=== PATIENT | male | born 1975 | race Caucasian/White ===

== ENCOUNTER 2022-11-08 20:46 | Emergency (ER) | payer OTHER, SELFPAY ==
[2022-11-08 20:54] VITALS: BP 109/77; PULSE 113; RESP 18; TEMP 36.4; O2SAT 97; BMI 21.4
--- NOTE | 2022-11-08 20:59 | W.ED.SOB ---
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 Notes onset of symptoms approximately 4 weeks ago without known specific provoking event. Since that time has had progressively worsening exertional dyspnea, dyspnea at rest, and orthopnea. Does note cough which is nonproductive. He notes some feeling of abdominal fullness. Overall course is worsened. Intensity is moderate to severe. 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 Onset (ago): week(s) Timing: progressively worsening Severity: severe Exacerbating factors: lying flat, exertion and coughing Known history of: COPD Associated symptoms: Reports orthopnea, palpitations and other Review of Systems General: Reports: 10 or more systems reviewed and unremarkable except in HPI and below Card: Reports: palpitations and orthopnea PFS ED PFSH: Medical History (Updated 11/21/22 @ 19:35 by Lukas Christensen MD) COPD (chronic obstructive pulmonary disease) Surgical History (Updated 11/21/22 @ 19:35 by Lukas Christensen MD) No significant past surgical history Physical Exam Const: COMMON NORMALS: alert GENERAL APPEARANCE: cooperative and well developed HENMT: COMMON NORMALS: normocephalic and atraumatic HEAD & SCALP: normocephalic and atraumatic Eye: COMMON NORMALS: conjunctivae normal CONJUNCTIVA: Yes conjunctivae normal SCLERA: sclerae normal Neck/C-Spine: COMMON NORMALS: supple GENERAL: Yes trachea midline Resp: COMMON NORMALS: normal respiratory effort EFFORT & INSPECTION: Yes able to speak in complete sentences AUSCULTATION: crackles Cardio: COMMON NORMALS: regular rhythm RATE: tachycardic RHYTHM: regular rhythm GI: COMMON NORMALS: Soft to palpation PALPATION: Yes Soft to palpation and No Tenderness to palpation present (GI) PERCUSSION: normal to percussion Extremity: GENERAL: Yes normal exam except as noted and Yes edema Neuro: COMMON NORMALS: moves all extremities SENSORIUM/ORIENTATION: Yes alert and No Orientation impaired Psych: COMMON NORMALS: mental status grossly normal and Normal thought process present THOUGHT PROCESS: Normal thought process present Course Vital Signs: Vital signs: Vital Signs Temperature 97.5 F L 07/04/23 20:54 Pulse Rate 117 H 11/08/22 23:38 Respiratory Rate 30 H 11/08/22 23:38 Blood Pressure 121/95 11/08/22 23:38 Pulse Oximetry 94 11/08/22 23:38 Oxygen Delivery Me thod Room Air 11/08/22 23:00 MDM - SOB/Dyspnea Medical Decision Making 46-year-old gentleman presenting with worsening respiratory symptoms. Exam as above. Patient is tachycardic and I suspect has evidence of heart failure as opposed to COPD exacerbation. EKG demonstrates sinus tachycardia, normal axis and intervals, nonspecific ST segment abnormalities, no STEMI. Labs with no leukocytosis, normal hemoglobin and platelet count. ABG demonstrates hypoxemia with respiratory end mildly elevated creatinine and potassium. Negative range 2-hour delta troponin. BNP is elevated. Viral panel negative. Chest x-ray with borderline cardiomegaly and mild interstitial edema. Overall presentation is more impressive than chest x-ray findings. D-dimer obtained as patient cannot be ruled out by PERC given tachycardia. D-dimer was elevated and therefore CT obtained which is negative for pulmonary embolism. Patient has effusions present and mild evidence of pneumonitis. Patient initially had fluids ordered however only received a small volume before I instructed RN to stop fluids after review chest x-ray with evidence of vascular congestion. He was also treated with RT treatment. Evidence of new onset heart failure and also possible pneumonia with history of underlying lung disease. He is tachycardic and I recommended inpatient evaluation and treatment. Patient adamantly refused admission. The patient is oriented to person, place, and time, has the capacity to make decisions regarding the medical care offered. The patient speaks coherently and exhibits no evidence of having an altered level of consciousness or alcohol or drug intoxication to a point that would impair judgment. They respond knowingly to questions about recommended treatment and alternate treatments including no further testing or treatment; participate in diagnostic and treatment decisions by means of rational thought processes; and understand the items of minimum basic medical treatment information with respect to that treatment (the nature and seriousness of the illness, the nature of the treatment, the probable degree and duration of any benefits and risks of any medical intervention that is being recommended, and the consequences of lack of treatment, and the nature, risks, and benefits of any reasonable alternatives). He is adamant about leaving and has capacity to make medical decisions. Discharge instructions were provided to the patient. The patient understands they are welcome to return to the hospital at any time to receive the recommended care or any other care at any time, regardless of their ability to pay for such care. I will treat the patient's pneumonia as well as initiate Lasix and potassium supplementation. I will refer for further outpatient follow-up. Medical Records I reviewed the patient's medical records. Lab Data I reviewed the patient's lab results. 11/08/22 21:19 11/08/22 21:19 Labs/Radiology: Radiology Impressions Chest X-Ray 11/08/22 21:04 IMPRESSION: 1. Interval increased heart size with current borderline to mild cardiomegaly. 2. Interval appearance of thickening of the right minor fissure and peribronchial thickening consistent with mild pulmonary interstitial edema. Chest CTA 11/08/22 21:49 IMPRESSION: 1. Jffg-du-kfevfepb bilateral pleural fluid collection, fvlml-bnbfaxq-ccgb-left. 2. Mild groundglass opacities and/or interstitial opacities consistent with mild allergic pneumonitis, infectious pneumonitis, atypical pulmonary edema and/or volume overload. 3. Borderline to mild cardiomegaly. 4. No pulmonary embolus. COMMENTS: Consistent with the [employer]'s Incidental Findings Committee white paper (J Am Dana Radiol 2018): Any incidental renal lesion less than 1 cm or classified as too small to characterize, or any incidental cystic renal lesion characterized as simple-appearing, is likely benign. No follow-up imaging is recommended for these lesions per consensus recommendations based on imaging criteria. Laboratory Results WBC 9.6 10^3/uL (4.0-10.0) 11/08/22 21:19 RBC 4.46 10^6/uL (4.1-5.3) 11/08/22 21:19 Hgb 13.4 g/dL (11.7-16.6) 11/08/22 21:19 Hct 42.5 % (42.0-52.0) 11/08/22 21:19 MCV 95.3 fl (80-94) H 11/08/22 21:19 MCH 30.0 pg (28.0-34.0) 11/08/22 21: MCHC 31.5 g/dL (30.0-36.0) 11/08/22 21:19 RDW 14.4 % (12.1-15.1) 11/08/22 21:19 Plt Count 196 10^3/cmm (130-400) 11/08/22 21:19 MPV 12.0 fL (7.4-10.4) H 11/08/22 21:19 Neut % (Auto) 74.0 % 11/08/22 21:19 Lymph % (Auto) 18.8 % 11/08/22 21:19 [place] % (Auto) 5.6 % 11/08/22 21:19 Eos % (Auto) 0.6 % 11/08/22 21:19 Baso % (Auto) 0.6 % 11/08/22 21:19 Neut # (Auto) 7.08 10^3/uL (1.8-7.7) 11/08/22 21:19 Lymph # (Auto) 1.8 10^3/uL (0.8-4.8) 11/08/22 21:19 [place] # (Auto) 0.5 10^3/uL (0.2-0.9) 11/08/22 21:19 Eos # (Auto) 0.1 10^3/uL (0.0-0.8) 11/08/22 21:19 Baso # (Auto) 0.1 10^3/uL (0.0-0.1) 11/08/22 21:19 Nucleated RBC % (auto) 0 % 11/08/22 21:19 Nucleated RBCs # 0.0 /100WBC 11/08/22 21:19 D-Dimer 1.13 ug/mIFEU (0-0.59) H 11/08/22 21:19 Specimen Type Arterial 11/08/22 21:30 Sample Site Brachial, right 11/08/22 21:30 ABG pH 7.47 (7.35-7.45) H 11/08/22 21:30 ABG pCO2 28.7 mmHg (35-45) L 11/08/22 21:30 ABG pO2 70.5 mmHg (80.0-100.0) L 11/08/22 21:30 ABG HCO3 21.0 mmol/L (22-26) L 11/08/22 21:30 ABG Base Excess -1.6 mmol/L (-2.0-2.0) 11/08/22 21:30 [place] Test N/a 11/08/22 21:30 Hematocrit 38.6 % (42-52) L 11/08/22 21:30 Hgb O2 Saturation 93.5 % (95-100) L 11/08/22 21:30 Carboxyhemoglobin 2.1 %THgb (0.4-20.1) 11/08/22 21:30 Methemoglobin 0.1 % (0.4-1.5) L 11/08/22 21:30 Total Hemoglobin 12.6 g/dL (14-18) L 11/08/22 21:30 O2 Delivery Device None 11/08/22 21:30 FiO2 21.0 % 11/08/22 21:30 Mold Design Engineer ID Alewe 11/08/22 21:30 Sodium 142 mmol/L (136-145) 11/08/22 21:19 Potassium 5.2 mmol/L (3.5-5.1) H 11/08/22 21:19 Chloride 105 mmol/L (98-107) 11/08/22 21:19 Carbon Dioxide 23 mmol/L (22-29) 11/08/22 21:19 Anion Gap 19.2 (5-19) H 11/08/22 21:19 BUN 15 mg/dL (6-20) 11/08/22 21:19 Creatinine 1.3 mg/dL (0.7-1.2) H 11/08/22 21:19 GFR Calculation 58.9 mL/min (90-130) L 11/08/22 21:19 Glucose 123 mg/dL (65-115) H 11/08/22 21:19 Calculated Osmolality 296 mOsm/kg (285-295) H 11/08/22 21:19 Lactic Acid 1.4 mmol/L (0.5-2.2) 11/08/22 21:19 Calcium 9.2 mg/dL (8.5-10.5) 11/08/22 21:19 Total Bilirubin 0.8 mg/dL (0.15-1.2) 11/08/22 21:19 AST 26 U/L (0-40) 11/08/22 21:19 ALT 34 U/L (0-41) 11/08/22 21:19 Alkaline Phosphatase 55 U/L (40-130) 11/08/22 21:19 Troponin T Baseline 18 ng/L (0-15) H 11/08/22 21:19 Troponin T 120 Minute 16.15 ng/L (0-15) H 11/08/22 23:05 Delta Troponin T -1.85 ABS# (0-10) L 11/08/22 23:05 NT-Pro-B Natriuret Pep 63779 pg/mL (0-125) H 11/08/22 21:19 Total Protein 7.0 g/dL (6.6-8.7) 11/08/22 21:19 Albumin 4.1 g/dL (3.5-5.2) 11/08/22 21:19 Globulin 2.9 g/dL (1.3-4.6) 11/08/22 21:19 Nasal Influ A H1 2008 PCR Not detected (NOT DETECT) 11/08/22 21:16 Adenovirus (PCR) Not detected (NOT DETECT) 11/08/22 21:16 C. pneumoniae DNA (PCR) Not detected (NOT DETECT) 11/08/22 21:16 Coronavirus 229E (PCR) Not detected (NOT DETECT) 11/08/22 21:16 Human Metapneumovir PCR Not detected (NOT DETECT) 11/08/22 21:16 Influenza A (H1) PCR Not detected (NOT DETECT) 11/08/22 21:16 Influenza A (H3) PCR Not detected (NOT DETECT) 11/08/22 21:16 Influenza Type A (PCR) Not detected (NOT DETECT) 11/08/22 21:16 Influenza Type B (PCR) Not detected (NOT DETECT) 11/08/22 21:16 M. pneumoniae (PCR) Not detected (NOT DETECT) 11/08/22 21:16 Parainfluenza 1 (PCR) Not detected (NOT DETECT) 11/08/22 21:16 Parainfluenza 2 (PCR) Not detected (NOT DETECT) 11/08/22 21:16 Parainfluenza 3 (PCR) Not detected (NOT DETECT) 11/08/22 21:16 Parainfluenza 4 (PCR) Not detected (NOT DETECT) 11/08/22 21:16 RSV Type A (PCR) Not detected (NOT DETECT) 11/08/22 21:16 RSV Type B (PCR) Not detected (NOT DETECT) 11/08/22 21:16 Entero/Rhino (PCR) Not detected (NOT DETECT) 11/08/22 21:16 SARS-CoV-2 (PCR) Not detected (NOT DETECT) 11/08/22 21:16 Discharge Plan Discharge Patient Disposition: Left Against Medical Advice Clinical Impression: Community acquired pneumonia, Congestive heart failure Condition: Stable Prescriptions: New albuterol sulfate 90 mcg/actuation HFA aerosol inhaler 2 inh inhalation Q4H PRN (Reason: shortness of breath or wheezing) Qty: 8.5 0RF Lasix 40 mg tablet 40 mg PO DAILY Qty: 30 0RF potassium chloride 10 mEq capsule, extended release 10 meq PO DAILY Qty: 14 0RF No Action amoxicillin-pot clavulanate 875-125 mg tablet 1 tab PO BID 7 Days Qty: 14 0RF Discharge Orders: Discharge ED (Routine); Ordered 11/08/22 Ordered By: Lukas Christensen Discharge Diet: Cardiac Discharge Activity: Resume usual activity Patient Instructions: Heart Failure (ED), Pneumonia (ED) Activity Restrictions/Additional Instructions: Thank you for visiting the emergency department. You were seen and evaluated for shortness of breath. The most likely cause of your symptoms is related to heart failure. There may be some superimposed atypical pneumonia. I strongly recommend admission. Failure to be admitted for further cardiac evaluation may lead to , permanent debility/disability, or worse. You may return to the emergency department at any reason for any time. I will message case management for follow-up and an outpatient echocardiogram. Please follow-up with a primary care provider. Stand Alone Forms: Against Medical Advice Coding Level of Care Code ED Membership Correspondent for Trina Tariq
--- NOTE | 2022-11-08 21:04 | XRR_ITS ---
PROCEDURE INFORMATION: Exam: XR Chest Exam date and time: 11/08/2022 8:11 PM Age: 46 years old Clinical indication: Shortness of breath; Additional info: SOB TECHNIQUE: Imaging protocol: Radiologic exam of the chest. Views: 1 view. COMPARISON: CR XR chest 2V* [id number] 01/25/2017 1:40 PM FINDINGS: Lungs: See Pleural spaces finding. Pleural spaces: Interval appearance of thickening of the right minor fissure and peribronchial thickening consistent with mild pulmonary interstitial edema. Heart/Mediastinum: Interval increased heart size with current borderline to mild cardiomegaly. Bones/joints: Unremarkable. XR/XR chest 1V portable [id number] IMPRESSION: 1. Interval increased heart size with current borderline to mild cardiomegaly. 2. Interval appearance of thickening of the right minor fissure and peribronchial thickening consistent with mild pulmonary interstitial edema.
--- NOTE | 2022-11-08 21:09 | ECG_ITS ---
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 Measurements Intervals [place] Rate: 113 P: 79 TX: 153 QRS: 68 QRSD: 97 T: 114 QT: 348 QTc: 479 Interpretive Statements SINUS TACHYCARDIA POSSIBLE LEFT ATRIAL ENLARGEMENT [-0.1mV P-WAVE IN V1/V2] NONSPECIFIC T-WAVE ABNORMALITY ABNORMAL RHYTHM ECG Compared to ECG 01/25/2017 12:41:58 T-wave abnormality now present Sinus rhythm no longer present Electronically Signed On 11-09-2022 4:16:10 CDT by Olga Pope M.D. [email or web address] [id number]
[2022-11-08] MEDS: ipratropium-albuterol 3 mL Neb INHALATION (21:28)
[2022-11-08 21:30] VITALS: PULSE 115; RESP 14; O2SAT 97
[2022-11-08 21:32] LABS: Basophils # 0.1 10^3/uL (0.0-0.1); Basophils % 0.6 %; Eosinophils # 0.1 10^3/uL (0.0-0.8); Eosinophils % 0.6 %; Hematocrit 42.5 % (42.0-52.0); Hemoglobin 13.4 g/dL (11.7-16.6); Lymphocytes # 1.8 10^3/uL (0.8-4.8); Lymphocytes % 18.8 %; Mean Corpuscular HGB Conc 31.5 g/dL (30.0-36.0); Mean Corpuscular Volume 95.3 fl (80-94); Monocytes # 0.5 10^3/uL (0.2-0.9); Monocytes % 5.6 %; Neutrophils # 7.08 10^3/uL (1.8-7.7); Nucleated Red Blood Cells % 0 %; Platelet Count 196 10^3/cmm (130-400); Red Blood Count 4.46 10^6/uL (4.1-5.3); Red Cell Distribution Width 14.4 % (12.1-15.1); White Blood Count 9.6 10^3/uL (4.0-10.0)
[2022-11-08 21:43] LABS: ABG PCO2 28.7 mmHg (35-45); ABG PH Result 7.47 (7.35-7.45); Arterial Blood Gas Hematocrit 38.6 % (42-52); Base Excess ABG -1.6 mmol/L (-2.0-2.0); Blood Gas Sample Site Brachial, right; Blood Gas Sample Type Arterial; Carboxyhemoglobin 2.1 %THgb (0.4-20.1); HGB O2 Sat 93.5 % (95-100); Methemoglobin 0.1 % (0.4-1.5); PO2 ABG 70.5 mmHg (80.0-100.0); Total Hemoglobin 12.6 g/dL (14-18)
[2022-11-08 21:45] LABS: D Dimer 1.13 ug/mIFEU (0-0.59)
[2022-11-08 21:47] LABS: Lactic Sepsis W/Reflex 1.4 mmol/L (0.5-2.2)
--- NOTE | 2022-11-08 21:49 | CTR_ITS ---
PROCEDURE INFORMATION: Exam: CTA Chest With Contrast Exam date and time: 11/08/2022 10:00 PM Age: 46 years old Clinical indication: Shortness of breath; Additional info: SOB, elevated ddimer, tachycardia TECHNIQUE: Imaging protocol: Computed tomographic angiography of the chest with contrast. Exam focused on the arteries. 3D rendering (Not supervised by radiologist): MIP and/or 3D reconstructed images were created by the technologist. Radiation optimization: All CT scans at this facility use at least one of these dose optimization techniques: automated exposure control; mA and/or kV adjustment per patient size (includes targeted exams where dose is matched to clinical indication); or iterative reconstruction. Contrast material: ONMNI 350; Contrast volume: 100 ml; Contrast route: INTRAVENOUS (IV); REPORTING DATA: Count of CT and Cardiac NM exams in prior 12 months: This patient has received 0 known CTs and 0 known cardiac nuclear medicine studies in the 12 months prior to the current study. COMPARISON: CR (CHEST, ) 11/08/2022 8:11 PM RADIATION DOSE METRICS: Total DLP (mGy-cm): 259.13 FINDINGS: Pulmonary arteries: No pulmonary embolus. Aorta: Unremarkable. No aortic aneurysm. No aortic dissection. Lungs: Mild groundglass opacities and/or interstitial opacities consistent with mild allergic pneumonitis, infectious pneumonitis, atypical pulmonary edema and/or volume overload. Pleural spaces: Lyva-tu-mpadlqzi bilateral pleural fluid collection, imnzg-ykjhciy-lqri-left. Heart: Borderline to mild cardiomegaly. Lymph nodes: Unremarkable. No enlarged lymph nodes. Kidneys and ureters: Left renal simple cyst measuring >1.0 cm. Bones/joints: Unremarkable. No acute fracture. Soft tissues: Unremarkable. Other findings: . CT/CT angio chest PE protcl [id number] IMPRESSION: 1. Ugkc-sm-ccjalkdw bilateral pleural fluid collection, kzhoh-ibxpior-cihu-left. 2. Mild groundglass opacities and/or interstitial opacities consistent with mild allergic pneumonitis, infectious pneumonitis, atypical pulmonary edema and/or volume overload. 3. Borderline to mild cardiomegaly. 4. No pulmonary embolus. COMMENTS: Consistent with the [employer]'s Incidental Findings Committee white paper (J Am Dana Radiol 2018): Any incidental renal lesion less than 1 cm or classified as too small to characterize, or any incidental cystic renal lesion characterized as simple-appearing, is likely benign. No follow-up imaging is recommended for these lesions per consensus recommendations based on imaging criteria.
[2022-11-08 21:51] LABS: Troponin(5th) Baseline 18 ng/L (0-15)
[2022-11-08] MEDS: iohexol 350 mg/mL 500 mL Btl (per mL) IV (22:00)
[2022-11-08 22:01] LABS: Alanine Aminotransferase 34 U/L (0-41); Albumin Level 4.1 g/dL (3.5-5.2); Alkaline Phosphatase 55 U/L (40-130); Anion Gap 19.2 (5-19); Aspartate Amino Transferase 26 U/L (0-40); Blood Urea Nitrogen 15 mg/dL (6-20); Calcium 9.2 mg/dL (8.5-10.5); Carbon Dioxide 23 mmol/L (22-29); Chloride 105 mmol/L (98-107); Globulin 2.9 g/dL (1.3-4.6); Glomerular Filtration Rate 58.9 mL/min (90-130); Glucose 123 mg/dL (65-115); NT Pro B Type Natriuretic Pept 10286 pg/mL (0-125); Osmolality Calculated 296 mOsm/kg (285-295); Potassium 5.2 mmol/L (3.5-5.1); Sodium 142 mmol/L (136-145); Total Bilirubin 0.8 mg/dL (0.15-1.2)
[2022-11-08 22:21] VITALS: BP 132/92; PULSE 112; RESP 22; O2SAT 97
[2022-11-08 23:00] VITALS: BP 120/83; PULSE 116; RESP 29; O2SAT 95
--- NOTE | 2022-11-08 23:08 | ECG_ITS ---
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 Measurements Intervals [place] Rate: 114 P: 75 NE: 153 QRS: 56 QRSD: 97 T: 93 QT: 340 QTc: 468 Interpretive Statements SINUS TACHYCARDIA POSSIBLE LEFT ATRIAL ENLARGEMENT [-0.1mV P-WAVE IN V1/V2] NONSPECIFIC T-WAVE ABNORMALITY ABNORMAL RHYTHM ECG Compared to ECG 11/08/2022 21:09:30 No significant changes Electronically Signed On 11-09-2022 4:17:40 CDT by Olga Pope M.D. [id number]
[2022-11-08 23:38] VITALS: BP 121/95; PULSE 117; RESP 30; O2SAT 94
[2022-11-08 23:40] LABS: Troponin 5 2HR 16.15 ng/L (0-15)
[2022-11-08 23:40] LABS: Adenovirus Not Detected (NOT DETECT); Chlamydia Pneumoniae Not Detected (NOT DETECT); Coronavirus 229E,HKU1,NL63,OC4 Not Detected (NOT DETECT); Human Metapneumovirus Not Detected (NOT DETECT); Human Rhinovirus/Enterovirus Not Detected (NOT DETECT); Influenza A Not Detected (NOT DETECT); Influenza A H1 Not Detected (NOT DETECT); Influenza A H1-2009 Not Detected (NOT DETECT); Influenza A H3 Not Detected (NOT DETECT); Influenza B Not Detected (NOT DETECT); Mycoplasma Pneumoniae Not Detected (NOT DETECT); Parainfluenza Virus Type 1 Not Detected (NOT DETECT); Parainfluenza Virus Type 2 Not Detected (NOT DETECT); Parainfluenza Virus Type 3 Not Detected (NOT DETECT); Parainfluenza Virus Type 4 Not Detected (NOT DETECT); Respiratory Syncytial Virus A Not Detected (NOT DETECT); Respiratory Syncytial Virus B Not Detected (NOT DETECT); SARS-COV-2 Not Detected (NOT DETECT)
[2022-11-08 23:44] LABS: Troponin 5 2HR Delta -1.85 ABS# (0-10)
--- NOTE | 2022-11-09 12:27 | DCPLANNER ---
Addendum entered by Michelle Frausto 11/09/22 12:30: This was not ordered due to patient not having a primary care physician listed in chart and not being able to speak with patient at this time. Original Note: mall manager had message to schedule an outpatient echo cardiogram for patient. mall manager called patient to confirm that patient wanted to have the test ordered and to confirm who patient sees for primary care. mall manager called phone number [phone], unable to speak with patient or leave a voicemail at this time.
== END 2022-11-08 23:40 | disposition left against medical advice (07) ==
PROVIDERS: Emergency Provider Emergency Medicine
DX: J18.9 Pneumonia, unspecified organism (principal); I50.9 Heart failure, unspecified; E87.5 Hyperkalemia; R79.89 Other specified abnormal findings of blood chemistry; Z53.29 Procedure and treatment not carried out because of patient's decision for other reasons
CPT/HCPCS: 36415; 36600; 71045; 71275; 80053; 82805; 83605; 83880; 84484; 85025; 85378; 87040; 87486; 87581; 87633; 93005; 94640; 99285; Q9967

== ENCOUNTER 2022-11-29 14:49 | Emergency (ER) | payer OTHER, SELFPAY ==
[2022-11-29 15:00] VITALS: BP 96/73; PULSE 112; RESP 18; TEMP 36.3; O2SAT 97; BMI 21.1
--- NOTE | 2022-11-29 15:49 | XR_ITS ---
WS: [id number] EXAMINATION: XR chest 1V portable [id number] REASON FOR EXAM: sob ORDER DATE: 11/29/2022 3:49 PM FINDINGS: There is a right suprahilar multilobulated density which is about 25 mm in diameter without calcifica tion. Cardiomegaly is demonstrated. There are no infiltrates. There is slight blunting of the left c ostophrenic angle which could reflect the presence of a small effusion.. XR/XR chest 1V portable [id number] IMPRESSION: CARDIOMEGALY RIGHT HILAR NODULAR MASS OR POSSIBLY ADENOPATHY Cursory review of patient CT chest obtained on 11/08/2022 demonstrated extensive mediastinal adenopathy along with extensive pleural parenchymal nodularity in t he right upper lobe and right lateral pleura several of which appear to be poss ibly discrete nodules along with the right hilar nodularity and multicompartmen gilmar mediastinal adenopathy with bilateral effusions. Recommend further evaluati on with the possibility of lymphoma or other lymphoproliferative neoplasm or me tastatic disease. Findings discussed with Dr. Leon
--- NOTE | 2022-11-29 15:58 | W.ED.SOB ---
Documented by User: JORDAN Farrar 11/30/22 07:11 HPI - SOB/Dyspnea General: Chief Complaint: Shortness of Breath/Dyspnea Stated Complaint: SOB Time Seen by Provider: 11/29/22 15:49 History of Present Illness: HPI Narrative: Patient is a 46-year-old male comes to the ED with shortness of breath. Patient has a history of COPD and CHF. Patient was seen here in the ED back on November 08 and diagnosed with community-acquired pneumonia and congestive heart failure. He was discharged home with a prescription for an albuterol inhaler, potassium chloride and Lasix. Patient states that he was on an antibiotic and he stopped taking it and did not complete antibiotic course because it was making him feel weird. Patient says over the past couple weeks he has had a couple good days but for the most part he is having worsening shortness of breath and fatigue. Shortness of breath worsens with exertion and patient says he gets very short of breath with walking to the mailbox. He also reports having a productive cough with a clear sputum. Denies any fevers, chest pain or palpitations. Patient is also endorses some generalized abdominal that he describes as mild along with abdominal bloating. Associated symptoms: Reports abdominal pain (Generalized); Deny chest pain, fever(s), nausea, orthopnea, palpitations or vomiting Review of Systems Const: Denies: fever(s), chills or fatigue Eyes: Denies: change in vision or eye discomfort ENMT: Denies: throat pain, odynophagia, nasal discharge or nasal congestion Card: Denies: chest pain, palpitations, edema, swelling of feet/ankles, dyspnea on exertion or orthopnea Resp: Reports: dyspnea and productive cough; Denies: non-productive cough GI: Reports: abdominal pain (Generalized) and bloating; Denies: nausea, vomiting, diarrhea, constipation or hematochezia : Denies: flank pain, difficulty urinating, dysuria or hematuria Musc: Denies: neck pain, back pain or extremity swelling Skin/Breast: Denies: rash or new lesions Neuro: Denies: headache(s), numbness in extremities or weakness in extremities PFS ED PFSH: Medical History COPD (chronic obstructive pulmonary disease) Surgical History No significant past surgical history Physical Exam Const: COMMON NORMALS: no acute distress, patient oriented x3 and alert HENMT: COMMON NORMALS: normocephalic HEAD & SCALP: normocephalic MOUTH: Normal oral and palatal mucosa present THROAT: posterior oropharynx normal and uvula midline Neck/C-Spine: COMMON NORMALS: supple GENERAL: Yes normal visual inspection Resp: COMMON NORMALS: normal respiratory effort, No retractions, No use of accessory muscles and clear to auscultation bilaterally AUSCULTATION: clear to auscultation bilaterally Cardio: COMMON NORMALS: regular rate, regular rhythm, S1 normal heart sound present, S2 normal heart sound present, No gallops present (Cardio), No clicks present (Cardio), No murmurs present (Cardio) and Peripheral pulses 2+ throughout RATE: regular rate RHYTHM: regular rhythm HEART SOUNDS: S1 normal heart sound present and S2 normal heart sound present PERIPHERAL PULSES: Peripheral pulses 2+ throughout GI: COMMON NORMALS: Normal to inspection, nondistended, normoactive bowel sounds present, Soft to palpation and no masses PALPATION: Yes Soft to palpation and Yes Tenderness to palpation present (GI) (Generalized abdominal tenderness) OTHER: No signs of acute abdomen : COMMON NORMALS: Yes no CVA tenderness BLADDER/KIDNEY EXAM: Yes no CVA tenderness Back/Pelvis: COMMON NORMALS: no CVA tenderness Extremity: COMMON NORMALS: normal to inspection and no pedal edema Neuro: COMMON NORMALS: patient oriented x3 SENSORIUM/ORIENTATION: Yes alert GAIT: Yes Normal gait present Skin: GENERAL SKIN EXAM: dry skin Course Vital Signs: Vital signs: Vital Signs Temperature 97.3 F L 11/29/22 15:00 Pulse Rate 87 11/29/22 18:55 Respiratory Rate 16 11/29/22 16:28 Blood Pressure 99/75 11/29/22 18:55 Pulse Oximetry 98 11/29/22 16:28 Oxygen Delivery Me thod Room Air 11/29/22 16:28 MDM - SOB/Dyspnea Medical Decision Making Patient is a 46-year-old male comes to the ED with shortness of breath. Patient has a history of COPD and CHF. Patient was seen here in the ED back on November 08 and diagnosed with community-acquired pneumonia and congestive heart failure. He was discharged home with a prescription for an albuterol inhaler, potassium chloride and Lasix. Patient states that he was on an antibiotic and he stopped taking it and did not complete antibiotic course because it was making him feel weird. Patient says over the past couple weeks he has had a couple good days but for the most part he is having worsening shortness of breath and fatigue. Shortness of breath worsens with exertion and patient says he gets very short of breath with walking to the mailbox. He also reports having a productive cough with a clear sputum. Denies any fevers, chest pain or palpitations. Patient is also endorses some generalized abdominal that he describes as mild along with abdominal bloating. Patient's heart rate is a little tacky and 112 bpm but the rest of his vitals are stable. Patient appears nontoxic and in no acute distress. He has some generalized abdominal tenderness. Rest of exam is benign. Labs and imaging are pending. I placed an order for referral to systems integration manager for further evaluation of lung nodules. I spoke with the radiologist who reviewed patient's chest x-ray today and he went back and looked at patient's chest CT from November 08. He said there were couple things he saw on the CT imaging that were not noted on report. He noticed some extensive mediastinal adenopathy along with pleural parenchymal nodularity in the right upper lobe and right lateral pleura. He recommended doing a CT of his abdomen and pelvis to see if there is any other signs of metastatic disease. He recommends referring to systems integration manager for further evaluation and possible cancer work-up. Lab Data I reviewed the patient's lab results. I spoke with the radiologist who reviewed patient's chest x-ray today and he went back and looked at patient's chest CT from November 08. He said there were couple things he saw on the CT imaging that were not noted on report. He noticed some extensive mediastinal adenopathy along with pleural parenchymal nodularity in the right upper lobe and right lateral pleura. He recommended doing a CT of his abdomen and pelvis to see if there is any other signs of metastatic disease. He recommends referring to systems integration manager for further evaluation and possible cancer work-up. 11/29/22 16:18 11/29/22 16:18 Labs/Radiology: Radiology Impressions Chest X-Ray 11/29/22 15:49 IMPRESSION: CARDIOMEGALY RIGHT HILAR NODULAR MASS OR POSSIBLY ADENOPATHY Cursory review of patient CT chest obtained on 11/08/2022 demonstrated extensive mediastinal adenopathy along with extensive pleural parenchymal nodularity in the right upper lobe and right lateral pleura several of which appear to be possibly discrete nodules along with the right hilar nodularity and multicompartmental mediastinal adenopathy with bilateral effusions. Recommend further evaluation with the possibility of lymphoma or other lymphoproliferative neoplasm or metastatic disease. Findings discussed with Dr. Leon Abdomen/Pelvis CT 11/29/22 16:44 IMPRESSION: 1. Diffuse inhomogeneity of the liver. This could represent liver parenchymal disease or atypical fatty infiltration. 2. Moderate ascites. 3. Mild mucosal enhancement within the mid and distal small bowel could represent mild enteritis. No obstruction. 4. Small right and trace left pleural effusions. COMMENTS: Consistent with the [employer]'s Incidental Findings Committee white paper (J Am Dana Radiol 2018): Any incidental renal lesion less than 1 cm or classified as too small to characterize, or any incidental cystic renal lesion characterized as simple-appearing, is likely benign. No follow-up imaging is recommended for these lesions per consensus recommendations based on imaging criteria. Laboratory Results WBC 7.5 10^3/uL (4.0-10.0) 11/29/22 16:18 RBC 4.16 10^6/uL (4.1-5.3) 11/29/22 16:18 Hgb 12.1 g/dL (11.7-16.6) 11/29/22 16:18 Hct 38.9 % (42.0-52.0) L 11/29/22 16:18 MCV 93.5 fl (80-94) 11/29/22 16:18 MCH 29.1 pg (28.0-34.0) 11/29/22 16:18 MCHC 31.1 g/dL (30.0-36.0) 11/29/22 16:18 RDW 15.0 % (12.1-15.1) 11/29/22 16:18 Plt Count 198 10^3/cmm (130-400) 11/29/22 16:18 MPV 12.0 fL (7.4-10.4) H 11/29/22 16:18 Neut % (Auto) 58.1 % 11/29/22 16:18 Lymph % (Auto) 28.8 % 11/29/22 16:18 Gooding % (Auto) 10.5 % 11/29/22 16:18 Eos % (Auto) 1.2 % 11/29/22 16:18 Baso % (Auto) 1.1 % 11/29/22 16:18 Neut # (Auto) 4.36 10^3/uL (1.8-7.7) 11/29/22 16:18 Lymph # (Auto) 2.2 10^3/uL (0.8-4.8) 11/29/22 16:18 Gooding # (Auto) 0.8 10^3/uL (0.2-0.9) 11/29/22 16:18 Eos # (Auto) 0.1 10^3/uL (0.0-0.8) 11/29/22 16:18 Baso # (Auto) 0.1 10^3/uL (0.0-0.1) 11/29/22 16:18 Nucleated RBC % (auto) 0 % 11/29/22 16:18 Nucleated RBCs # 0.0 /100WBC 11/29/22 16:18 Sodium 137 mmol/L (136-145) 11/29/22 16:18 Potassium 5.1 mmol/L (3.5-5.1) 11/29/22 16:18 Chloride 105 mmol/L (98-107) 11/29/22 16:18 Carbon Dioxide 23 mmol/L (22-29) 11/29/22 16:18 Anion Gap 14.1 (5-19) 11/29/22 16:18 BUN 21 mg/dL (6-20) H 11/29/22 16:18 Creatinine 1.3 mg/dL (0.7-1.2) H 11/29/22 16:18 GFR Calculation 58.9 mL/min (90-130) L 11/29/22 16:18 Glucose 121 mg/dL (65-115) H 11/29/22 16:18 Calculated Osmolality 288 mOsm/kg (285-295) 11/29/22 16:18 Calcium 8.6 mg/dL (8.5-10.5) 11/29/22 16:18 Total Bilirubin 1.1 mg/dL (0.15-1.2) 11/29/22 16:18 AST 27 U/L (0-40) 11/29/22 16:18 ALT 33 U/L (0-41) 11/29/22 16:18 Alkaline Phosphatase 42 U/L (40-130) 11/29/22 16:18 Troponin T Baseline 19 ng/L (0-15) H 11/29/22 16:18 NT-Pro-B Natriuret Pep 6724 pg/mL (0-125) H 11/29/22 16:18 Total Protein 6.6 g/dL (6.6-8.7) 11/29/22 16:18 Albumin 3.7 g/dL (3.5-5.2) 11/29/22 16:18 Globulin 2.9 g/dL (1.3-4.6) 11/29/22 16:18 Influenza Type A Ag negative (Negative) 11/29/22 16:10 Influenza Type B Ag negative (Negative) 11/29/22 16:10 SARS-CoV-2 Ag (Rapid) negative (Negative) 11/29/22 16:10 Discharge Plan Discharge Patient Disposition: Home Clinical Impression: Congestive heart failure, COPD (chronic obstructive pulmonary disease), Abnormal CT scan of lung Condition: Stable Prescriptions: New spironolactone 25 mg tablet 25 mg PO DAILY Qty: 30 0RF metoprolol succinate 25 mg tablet extended release 24 hr 25 mg PO DAILY Qty: 30 0RF Continued Lasix 40 mg tablet 40 mg PO DAILY Qty: 30 0RF No Action amoxicillin-pot clavulanate 875-125 mg tablet 1 tab PO BID 7 Days Qty: 14 0RF albuterol sulfate 90 mcg/actuation HFA aerosol inhaler 2 inh inhalation Q4H PRN (Reason: shortness of breath or wheezing) Qty: 8.5 0RF potassium chloride 10 mEq capsule, extended release 10 meq PO DAILY Qty: 14 0RF Discharge Orders: Discharge ED (Routine); Ordered 11/29/22 Ordered By: Fabian Martin Discharge Diet: Usual diet Discharge Activity: Increase activity as tolerated Patient Instructions: Heart Failure (ED) Activity Restrictions/Additional Instructions: Home and rest. Take medication as directed. Take furosemide 40 mg daily in the morning. Use metoprolol 25 mg and spironolactone 25 mg once daily in the evening. These medications are to help get fluid off your lung and abdomen and control your heart rate. Follow-up with primary care as needed. Return to emergency department for worsening symptoms or new concerns such as severe chest pain, high fever greater than 100.4, or increasing shortness of breath. Sign Out Sign Out Data: Patient Sign Out occurred on 11/29/22 at 17:09. Patient's care was discussed, and care was transferred from to Fabian Martin. Coding Level of Care Code ED Service Station Attendant for Chg Fwd Documented by User: ALEX Mcdonnell 11/29/22 18:21 HPI - SOB/Dyspnea General: Chief Complaint: Shortness of Breath/Dyspnea Stated Complaint: SOB Time Seen by Provider: 11/29/22 15:49 PFSH ED PFSH: Medical History COPD (chronic obstructive pulmonary disease) Surgical History No significant past surgical history Course Vital Signs: Vital signs: Vital Signs Temperature 97.3 F L 11/29/22 15:00 Pulse Rate 87 11/29/22 18:55 Respiratory Rate 16 11/29/22 16:28 Blood Pressure 99/75 11/29/22 18:55 Pulse Oximetry 98 11/29/22 16:28 Oxygen Delivery Me thod Room Air 11/29/22 16:28 MDM - SOB/Dyspnea Medical Decision Making Patient is a 46-year-old male comes to the ED with shortness of breath. Patient has a history of COPD and CHF. Patient was seen here in the ED back on November 08 and diagnosed with community-acquired pneumonia and congestive heart failure. He was discharged home with a prescription for an albuterol inhaler, potassium chloride and Lasix. Patient states that he was on an antibiotic and he stopped taking it and did not complete antibiotic course because it was making him feel weird. Patient says over the past couple weeks he has had a couple good days but for the most part he is having worsening shortness of breath and fatigue. Shortness of breath worsens with exertion and patient says he gets very short of breath with walking to the mailbox. He also reports having a productive cough with a clear sputum. Denies any fevers, chest pain or palpitations. Patient is also endorses some generalized abdominal that he describes as mild along with abdominal bloating. Patient's heart rate is a little tacky and 112 bpm but the rest of his vitals are stable. Patient appears nontoxic and in no acute distress. He has some generalized abdominal tenderness. Rest of exam is benign. Labs and imaging are pending. I placed an order for referral to systems integration manager for further evaluation of lung nodules. I spoke with the radiologist who reviewed patient's chest x-ray today and he went back and looked at patient's chest CT from November 08. He said there were couple things he saw on the CT imaging that were not noted on report. He noticed some extensive mediastinal adenopathy along with pleural parenchymal nodularity in the right upper lobe and right lateral pleura. He recommended doing a CT of his abdomen and pelvis to see if there is any other signs of metastatic disease. He recommends referring to systems integration manager for further evaluation and possible cancer work-up. Reviewed CT of the abdomen with patient showing ascites. Patient had been a heavy drinker up until about 2 to 3 years ago and had stopped. Laboratory values showed no significant liver enzyme abnormalities. Discussed with patient the abnormality noted on the CT imaging of his chest with recommendations for follow-up with systems integration manager. Also discussed follow-up with coagulating operator for further evaluation and treatment of heart failure. I offered admission to the hospital for further treatment. Patient refused stating that he had been ill since September and has been handling it well at home and did not want to be admitted to the hospital. We will add metoprolol ER 25 mg daily to help with heart rate control, and 25 mg spironolactone. Patient will continue with his furosemide 40 mg daily. Patient reported understanding of care plan and need for follow-up or return to the ER. Lab Data 11/29/22 16:18 11/29/22 16:18 Labs/Radiology: Radiology Impressions Chest X-Ray 11/29/22 15:49 IMPRESSION: CARDIOMEGALY RIGHT HILAR NODULAR MASS OR POSSIBLY ADENOPATHY Cursory review of patient CT chest obtained on 11/08/2022 demonstrated extensive mediastinal adenopathy along with extensive pleural parenchymal nodularity in the right upper lobe and right lateral pleura several of which appear to be possibly discrete nodules along with the right hilar nodularity and multicompartmental mediastinal adenopathy with bilateral effusions. Recommend further evaluation with the possibility of lymphoma or other lymphoproliferative neoplasm or metastatic disease. Findings discussed with Dr. Leon Abdomen/Pelvis CT 11/29/22 16:44 IMPRESSION: 1. Diffuse inhomogeneity of the liver. This could represent liver parenchymal disease or atypical fatty infiltration. 2. Moderate ascites. 3. Mild mucosal enhancement within the mid and distal small bowel could represent mild enteritis. No obstruction. 4. Small right and trace left pleural effusions. COMMENTS: Consistent with the [employer]'s Incidental Findings Committee white paper (J Am Dana Radiol 2018): Any incidental renal lesion less than 1 cm or classified as too small to characterize, or any incidental cystic renal lesion characterized as simple-appearing, is likely benign. No follow-up imaging is recommended for these lesions per consensus recommendations based on imaging criteria. Laboratory Results WBC 7.5 10^3/uL (4.0-10.0) 11/29/22 16:18 RBC 4.16 10^6/uL (4.1-5.3) 11/29/22 16:18 Hgb 12.1 g/dL (11.7-16.6) 11/29/22 16:18 Hct 38.9 % (42.0-52.0) L 11/29/22 16:18 MCV 93.5 fl (80-94) 11/29/22 16:18 MCH 29.1 pg (28.0-34.0) 11/29/22 16:18 MCHC 31.1 g/dL (30.0-36.0) 11/29/22 16:18 RDW 15.0 % (12.1-15.1) 11/29/22 16:18 Plt Count 198 10^3/cmm (130-400) 11/29/22 16:18 MPV 12.0 fL (7.4-10.4) H 11/29/22 16:18 Neut % (Auto) 58.1 % 11/29/22 16:18 Lymph % (Auto) 28.8 % 11/29/22 16:18 Gooding % (Auto) 10.5 % 11/29/22 16:18 Eos % (Auto) 1.2 % 11/29/22 16:18 Baso % (Auto) 1.1 % 11/29/22 16:18 Neut # (Auto) 4.36 10^3/uL (1.8-7.7) 11/29/22 16:18 Lymph # (Auto) 2.2 10^3/uL (0.8-4.8) 11/29/22 16:18 Gooding # (Auto) 0.8 10^3/uL (0.2-0.9) 11/29/22 16:18 Eos # (Auto) 0.1 10^3/uL (0.0-0.8) 11/29/22 16:18 Baso # (Auto) 0.1 10^3/uL (0.0-0.1) 11/29/22 16:18 Nucleated RBC % (auto) 0 % 11/29/22 16:18 Nucleated RBCs # 0.0 /100WBC 11/29/22 16:18 Sodium 137 mmol/L (136-145) 11/29/22 16:18 Potassium 5.1 mmol/L (3.5-5.1) 11/29/22 16:18 Chloride 105 mmol/L (98-107) 11/29/22 16:18 Carbon Dioxide 23 mmol/L (22-29) 11/29/22 16:18 Anion Gap 14.1 (5-19) 11/29/22 16:18 BUN 21 mg/dL (6-20) H 11/29/22 16:18 Creatinine 1.3 mg/dL (0.7-1.2) H 11/29/22 16:18 GFR Calculation 58.9 mL/min (90-130) L 11/29/22 16:18 Glucose 121 mg/dL (65-115) H 11/29/22 16:18 Calculated Osmolality 288 mOsm/kg (285-295) 11/29/22 16:18 Calcium 8.6 mg/dL (8.5-10.5) 11/29/22 16:18 Total Bilirubin 1.1 mg/dL (0.15-1.2) 11/29/22 16:18 AST 27 U/L (0-40) 11/29/22 16:18 ALT 33 U/L (0-41) 11/29/22 16:18 Alkaline Phosphatase 42 U/L (40-130) 11/29/22 16:18 Troponin T Baseline 19 ng/L (0-15) H 11/29/22 16:18 NT-Pro-B Natriuret Pep 6724 pg/mL (0-125) H 11/29/22 16:18 Total Protein 6.6 g/dL (6.6-8.7) 11/29/22 16:18 Albumin 3.7 g/dL (3.5-5.2) 11/29/22 16:18 Globulin 2.9 g/dL (1.3-4.6) 11/29/22 16:18 Influenza Type A Ag negative (Negative) 11/29/22 16:10 Influenza Type B Ag negative (Negative) 11/29/22 16:10 SARS-CoV-2 Ag (Rapid) negative (Negative) 11/29/22 16:10 EKG Data EKG 1: EKG Interpretation Date: 11/29/22 EKG interpretation time: 17:55 Prior EKG tracings: not available for review Interpretation: EKG shows a sinus tachycardia with a regular rate at [address] elevation or ectopy otherwise is noted. No prior exam was available for comparison. Computer Generated Interpretation: Sinus tachycardia, possible left atrial enlargement, possible right ventricular conduction delay, nonspecific T wave abnormality, abnormal rhythm EKG, unconfirmed report. Discharge Plan Discharge Patient Disposition: Home Clinical Impression: Congestive heart failure, COPD (chronic obstructive pulmonary disease), Abnormal CT scan of lung Condition: Stable Prescriptions: New spironolactone 25 mg tablet 25 mg PO DAILY Qty: 30 0RF metoprolol succinate 25 mg tablet extended release 24 hr 25 mg PO DAILY Qty: 30 0RF Continued Lasix 40 mg tablet 40 mg PO DAILY Qty: 30 0RF No Action amoxicillin-pot clavulanate 875-125 mg tablet 1 tab PO BID 7 Days Qty: 14 0RF albuterol sulfate 90 mcg/actuation HFA aerosol inhaler 2 inh inhalation Q4H PRN (Reason: shortness of breath or wheezing) Qty: 8.5 0RF potassium chloride 10 mEq capsule, extended release 10 meq PO DAILY Qty: 14 0RF Discharge Orders: Discharge ED (Routine); Ordered 11/29/22 Ordered By: Fabian Martin Discharge Diet: Usual diet Discharge Activity: Increase activity as tolerated Patient Instructions: Heart Failure (ED) Activity Restrictions/Additional Instructions: Home and rest. Take medication as directed. Take furosemide 40 mg daily in the morning. Use metoprolol 25 mg and spironolactone 25 mg once daily in the evening. These medications are to help get fluid off your lung and abdomen and control your heart rate. Follow-up with primary care as needed. Return to emergency department for worsening symptoms or new concerns such as severe chest pain, high fever greater than 100.4, or increasing shortness of breath. Sign Out Sign Out Data: Patient Sign Out occurred on 11/29/22 at 17:09. Patient's care was discussed, and care was transferred from to Fabian Martin. Coding Level of Care Code ED Service Station Attendant for Trina Tariq
[2022-11-29 16:28] VITALS: PULSE 105; RESP 16; O2SAT 98
[2022-11-29 16:29] LABS: Basophils # 0.1 10^3/uL (0.0-0.1); Basophils % 1.1 %; Eosinophils # 0.1 10^3/uL (0.0-0.8); Eosinophils % 1.2 %; Hematocrit 38.9 % (42.0-52.0); Hemoglobin 12.1 g/dL (11.7-16.6); Lymphocytes # 2.2 10^3/uL (0.8-4.8); Lymphocytes % 28.8 %; Mean Corpuscular HGB Conc 31.1 g/dL (30.0-36.0); Mean Corpuscular Hemoglobin 29.1 pg (28.0-34.0); Mean Corpuscular Volume 93.5 fl (80-94); Monocytes # 0.8 10^3/uL (0.2-0.9); Monocytes % 10.5 %; Neutrophils # 4.36 10^3/uL (1.8-7.7); Neutrophils % 58.1 %; Nucleated Red Blood Cells % 0 %; Platelet Count 198 10^3/cmm (130-400); Red Blood Count 4.16 10^6/uL (4.1-5.3); White Blood Count 7.5 10^3/uL (4.0-10.0)
[2022-11-29] MEDS: ipratropium-albuterol 3 mL Neb 6 ML INHALATION (16:30)
[2022-11-29 16:37] VITALS: PULSE 102
--- NOTE | 2022-11-29 16:44 | CTR_ITS ---
PROCEDURE INFORMATION: Exam: CT Abdomen And Pelvis With Contrast Exam date and time: 11/29/2022 5:25 PM Age: 46 years old Clinical indication: Abdominal pain; Acute; Additional info: Neurolyse abdominal tenderness and bloating. TECHNIQUE: Imaging protocol: Computed tomography of the abdomen and pelvis with contrast. Radiation optimization: All CT scans at this facility use at least one of these dose optimization techniques: automated exposure control; mA and/or kV adjustment per patient size (includes targeted exams where dose is matched to clinical indication); or iterative reconstruction. Contrast material: OMNI 350; Contrast volume: 100 ml; Contrast route: INTRAVENOUS (IV); REPORTING DATA: Count of CT and Cardiac NM exams in prior 12 months: This patient has received [address] and 0 known cardiac nuclear medicine studies in the 12 months prior to the current study. COMPARISON: CT abdomen pelvis w con* [id number] 10/29/2018 8:06 PM RADIATION DOSE METRICS: Total DLP (mGy-cm): 386.03 FINDINGS: Lungs: Emphysema. Dependent atelectasis in the right lower lobe. Pleural spaces: Small right and trace left pleural effusions. Liver: Severe diffuse inhomogeneity of the liver. No definite discrete nodule. Gallbladder and bile ducts: Normal. No calcified stones. No ductal dilation. Pancreas: Normal. No ductal dilation. Spleen: Normal. No splenomegaly. Adrenal glands: Normal. No mass. Kidneys and ureters: Left renal cyst, Hounsfield units less than 20. Additional hypodense lesions in both kidneys are too small to characterize but are most likely cysts. No follow-up imaging is recommended. No calculus or hydronephrosis. Stomach and bowel: Mild mucosal enhancement in the duodenum and multiple loops of mid to distal small bowel. No definite wall thickening or obstruction. Scattered gas and stool in the colon. The stomach is unremarkable. Appendix: The appendix is visualized and is normal. Intraperitoneal space: Moderate ascites. Vasculature: Unremarkable. No abdominal aortic aneurysm. Lymph nodes: Subcentimeter retroperitoneal lymph nodes are most likely reactive. Urinary bladder: Unremarkable as visualized. Reproductive: Unremarkable as visualized. Bones/joints: Unremarkable. No acute fracture. Soft tissues: Mild body wall edema. Small fat containing umbilical hernia. CT/CT abdomen pelvis w con* [id number] IMPRESSION: 1. Diffuse inhomogeneity of the liver. This could represent liver parenchymal disease or atypical fatty infiltration. 2. Moderate ascites. 3. Mild mucosal enhancement within the mid and distal small bowel could represent mild enteritis. No obstruction. 4. Small right and trace left pleural effusions. COMMENTS: Consistent with the [employer]'s Incidental Findings Committee white paper (J Am Dana Radiol 2018): Any incidental renal lesion less than 1 cm or classified as too small to characterize, or any incidental cystic renal lesion characterized as simple-appearing, is likely benign. No follow-up imaging is recommended for these lesions per consensus recommendations based on imaging criteria.
[2022-11-29 16:57] LABS: Influenza A by IFA negative (Negative); Influenza B by IFA negative (Negative)
[2022-11-29 16:57] LABS: Troponin(5th) Baseline 19 ng/L (0-15)
[2022-11-29 16:58] LABS: SARS Covid-2 Antigen negative (Negative)
[2022-11-29 17:07] LABS: Alanine Aminotransferase 33 U/L (0-41); Albumin Level 3.7 g/dL (3.5-5.2); Alkaline Phosphatase 42 U/L (40-130); Anion Gap 14.1 (5-19); Aspartate Amino Transferase 27 U/L (0-40); Blood Urea Nitrogen 21 mg/dL (6-20); Calcium 8.6 mg/dL (8.5-10.5); Carbon Dioxide 23 mmol/L (22-29); Chloride 105 mmol/L (98-107); Globulin 2.9 g/dL (1.3-4.6); Glomerular Filtration Rate 58.9 mL/min (90-130); Glucose 121 mg/dL (65-115); NT Pro B Type Natriuretic Pept 6724 pg/mL (0-125); Osmolality Calculated 288 mOsm/kg (285-295); Potassium 5.1 mmol/L (3.5-5.1); Sodium 137 mmol/L (136-145); Total Bilirubin 1.1 mg/dL (0.15-1.2); Total Protein 6.6 g/dL (6.6-8.7)
[2022-11-29] MEDS: iohexol 350 mg/mL 500 mL Btl (per mL) IV (17:27)
--- NOTE | 2022-11-29 17:50 | ECG_ITS ---
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 Measurements Intervals [place] Rate: 109 P: 76 [place]: 158 QRS: 78 QRSD: 98 T: 120 QT: 370 QTc: 498 Interpretive Statements SINUS TACHYCARDIA POSSIBLE LEFT ATRIAL ENLARGEMENT [-0.1mV P-WAVE IN V1/V2] POSSIBLE RIGHT VENTRICULAR CONDUCTION DELAY [RSR (QR) IN V1/V2] NONSPECIFIC T-WAVE ABNORMALITY Compared to ECG 11/08/2022 23:08:58 No significant changes Electronically Signed On 11-29-2022 18:03:13 CDT by Carlo Perez M.D. [email or web address]
[2022-11-29] MEDS: dexamethasone 10 mg/mL INJ IM (18:44)
[2022-11-29 18:55] VITALS: BP 99/75; PULSE 87
--- NOTE | 2022-11-30 07:36 | DCPLANNER ---
Addendum entered by Michelle Frausto 01/12/23 11:27: Patient did attend appointment scheduled with heart care Addendum entered by Michelle Frausto 12/14/22 10:47: Patient has a follow up appointment scheduled for Tuesday, January 10, 2023 at 12:[address] Perez at [facility]. Original Note: regional business manager had message to schedule a follow up appointment for patient with cardiology. regional business manager sent patients information to the front office staff at [facility]. Patients information will be printed and reviewed. Clinic will call patient with appointment information.
--- NOTE | 2022-11-30 07:39 | DCPLANNER ---
Addendum entered by Michelle Frausto 12/09/22 08:52: Patient had a follow up appointment scheduled with pulmonology - patient did not attend appointment. Addendum entered by Michelle Frausto 12/05/22 07:23: Patient has a follow up appointment scheduled for Tuesday, December 06, 2022 at 1:[address] Cárdenas at Pulmonology. Original Note: residence manager had message to schedule a follow up appointment for patient with pulmonology. residence manager sent patients information to the front office staff at [facility]. Patients information will be printed and reviewed. Clinic will call patient with appointment information.
--- NOTE | 2022-11-30 08:47 | DCPLANNER ---
security services manager called patient due to no primary care physician - no answer at this time.
== END 2022-11-29 18:57 | disposition home or self-care (01) ==
PROVIDERS: Physician Assistant; Emergency Provider Nurse Practitioner Family
DX: I11.0 Hypertensive heart disease with heart failure (principal); I50.9 Heart failure, unspecified; J44.9 Chronic obstructive pulmonary disease, unspecified; R91.8 Other nonspecific abnormal finding of lung field; Z20.822 Contact with and (suspected) exposure to COVID-19
CPT/HCPCS: 36415; 71045; 74177; 80053; 83880; 84484; 85025; 87426; 87804; 93005; 94640; 96372; 99285; J1100; Q9967

== ENCOUNTER → 2023-01-10 12:24 | Outpatient (BNVA) | payer OTHER, SELFPAY | PROVIDERS: Visit Provider Internal Medicine | DX: R07.9 Chest pain, unspecified (principal); R06.02 Shortness of breath; J44.9 Chronic obstructive pulmonary disease, unspecified; R00.0 Tachycardia, unspecified | CPT/HCPCS: 80053; 83880; 93005 ==

== ENCOUNTER 2023-01-14 18:31 | Emergency (ER) | payer OTHER, SELFPAY ==
[2023-01-14 18:32] VITALS: BP 123/89; PULSE 112; RESP 14; TEMP 36.6; O2SAT 98; BMI 22.1
--- NOTE | 2023-01-14 20:03 | CTR_ITS ---
PROCEDURE INFORMATION: Exam: CT Chest With Contrast; Diagnostic Exam date and time: 01/14/2023 8:25 PM Age: 47 years old Clinical indication: Nausea and vomiting; Abdominal pain; Shortness of breath; Other: N/a; Patient HX: Epigastric pain with n/v. Possible RT lung mass noted on xray/ct imaging performed on 11/08/2022. ; Additional info: Vomiting, abd pain, HX of possible lung mass TECHNIQUE: Imaging protocol: Diagnostic computed tomography of the chest with contrast. Radiation optimization: All CT scans at this facility use at least one of these dose optimization techniques: automated exposure control; mA and/or kV adjustment per patient size (includes targeted exams where dose is matched to clinical indication); or iterative reconstruction. Contrast material: OMNI 350; Contrast volume: 100 ml; Contrast route: INTRAVENOUS (IV); REPORTING DATA: Count of CT and Cardiac NM exams in prior 12 months: This patient has received 2 known CTs and 0 known cardiac nuclear medicine studies in the 12 months prior to the current study. COMPARISON: CT angio chest PE protcl [id number] 11/08/2022 10:00 PM RADIATION DOSE METRICS: Total DLP (mGy-cm): 587.27 FINDINGS: Lungs: Advanced centrilobular emphysema noted. No consolidative pulmonary infiltrate noted. Pleural spaces: Small right pleural effusion. No left pleural effusion. No pneumothorax. Heart: Cardiomegaly is present. There is no significant pericardial effusion present. Coronary arteries: No coronary arterial calcifications are noted. Lymph nodes: Mild mediastinal and bilateral hilar adenopathy. Mediastinal nodes measure up to 12 mm short axis. Hilar nodes measure up to 14 mm in length. Vasculature: Unremarkable. No aortic aneurysm. Bones/joints: Degenerative spine changes are noted. Soft tissues: 1.9 cm soft tissue mass-like density at the right lung apex which may represent fibrosis versus a nodule. months, PET/CT, or biopsy. (Reference: Leeanna) 4. No consolidative pulmonary infiltrate noted. 5. Small right pleural effusion. 6. Mild mediastinal and bilateral hilar adenopathy, slightly decreased/improved when compared to 11/08/2022. REFERENCES: Leeanna Laird, et al. Guidelines for Management of Incidental Pulmonary Nodules Detected on CT Images: From the Fleischner Society 2017. Radiology. 2017;284(1):228-243. PROCEDURE INFORMATION: Exam: CT Abdomen And Pelvis With Contrast Exam date and time: 01/14/2023 8:25 PM Age: 47 years old Clinical indication: Nausea and vomiting; Abdominal pain; Shortness of breath; Other: N/a; Patient HX: Epigastric pain with n/v. Possible RT lung mass noted on xray/ct imaging performed on 11/08/2022. ; Additional info: Vomiting, abd pain, HX of possible lung mass TECHNIQUE: Imaging protocol: Computed tomography of the abdomen and pelvis with contrast. Radiation optimization: All CT scans at this facility use at least one of these dose optimization techniques: automated exposure control; mA and/or kV adjustment per patient size (includes targeted exams where dose is matched to clinical indication); or iterative reconstruction. Contrast material: OMNI 350; Contrast volume: 100 ml; Contrast route: INTRAVENOUS (IV); REPORTING DATA: Count of CT and Cardiac NM exams in prior 12 months: This patient has received 2 known CTs and 0 known cardiac nuclear medicine studies in the 12 months prior to the current study. COMPARISON: CT abdomen pelvis w con* [id number] 11/29/2022 5:25 PM RADIATION DOSE METRICS: Total DLP (mGy-cm): 587.27 FINDINGS: Liver: The liver is unremarkable in appearance. Gallbladder and bile ducts: The gallbladder is contracted. No calcified gallstones demonstrated. Pancreas: The pancreas is normal in appearance. No pancreatic duct dilatation. Spleen: No focal splenic lesion. No splenomegaly. Adrenal glands: Unremarkable. No mass. Kidneys and ureters: Left kidney demonstrates a 3.7 cm simple appearing cyst. Right kidney demonstrates 0.6 cm cyst. No solid mass. No hydronephrosis. Stomach and bowel: No acute gastric abnormality demonstrated. The small bowel is unremarkable as demonstrated. No acute abnormality/inflammatory change of the colon. Appendix: No evidence of appendicitis. Intraperitoneal space: There is moderate ascites in the abdomen and pelvis. No loculated fluid collection. Vasculature: No abdominal aortic aneurysm. Lymph nodes: No pathologically enlarged lymph nodes are demonstrated. Urinary bladder: The urinary bladder is unremarkable in appearance. Reproductive: Unremarkable as visualized. Bones/joints: Unremarkable. No acute osseous abnormality. Soft tissues: The soft tissues are unremarkable as demonstrated. CT/CT chest abdpel w/*[id number] IMPRESSION: 1. Cardiomegaly is present. 2. Advanced centrilobular emphysema noted. 3. 1.9 cm soft tissue mass-like density at the right lung apex which may represent fibrosis versus a nodule. This is unchanged from CT chest of 11/08/2022.For both low risk and high risk patients, consider CT Chest at 3 IMPRESSION: 1. There is moderate ascites in the abdomen and pelvis. No loculated fluid collection. 2. No acute bowel abnormality identified. 3. No acute abnormality of the solid organs demonstrated. COMMENTS: Consistent with the [place] [employer] [employer]'s Incidental Findings Committee white paper (J Am Dana Radiol 2018): Any incidental renal lesion less than 1 cm or classified as too small to characterize, or any incidental cystic renal lesion characterized as simple-appearing, is likely benign. No follow-up imaging is recommended for these lesions per consensus recommendations based on imaging criteria.
[2023-01-14 20:05] VITALS: BP 110/80; PULSE 103; O2SAT 93
--- NOTE | 2023-01-14 20:08 | W.ED.NAVMDI ---
HPI - Nausea/Vomiting/Diarrhea General: Chief complaint: Nausea/Vomiting/Diarrhea Stated complaint: n/v Time Seen by Provider: 01/14/23 19:33 History of Present Illness: 47-year-old male gentleman with a history of CHF and COPD. He presents with vomiting. His sister notes that he has been vomiting most of the day. He complains of epigastric discomfort as well. He was seen back in November, and set up with a three dimensional map modeler due to concern over potential lung cancer with mediastinal adenopathy, but canceled his appointment. He denies fever. No blood in the vomit or stool. Associated nausea: Yes Associated symtoms: Reports nausea; Denies chest pain, headache(s) or palpitations Review of Systems Const: Reports: chills; Denies: fever(s) or body aches Card: Denies: chest pain or palpitations Resp: Denies: dyspnea, productive cough or non-productive cough GI: Reports: abdominal pain, nausea and vomiting; Denies: hematemesis or hematochezia Neuro: Denies: headache(s) PFS ED PFSH: Medical History COPD (chronic obstructive pulmonary disease) Surgical History No significant past surgical history Physical Exam Const: GENERAL APPEARANCE: cooperative, lethargic, ill appearing and frail appearing (Mildly for age) ORIENTATION/CONSCIOUSNESS: Yes lethargic HENMT: COMMON NORMALS: normocephalic and Normal external nose present HEAD & SCALP: normocephalic FACE & SINUS: normal facial exam and face symmetric NOSE: Normal external nose present Eye: COMMON NORMALS: Equal, round and reactive pupils present and EOMs intact bilaterally PUPIL: Yes Equal, round and reactive pupils present Neck/C-Spine: GENERAL: Yes trachea midline Chest: CHEST: Yes Symmetrical chest wall rise Resp: COMMON NORMALS: normal respiratory effort, No retractions, No use of accessory muscles and clear to auscultation bilaterally AUSCULTATION: clear to auscultation bilaterally Cardio: COMMON NORMALS: regular rate and regular rhythm RATE: regular rate RHYTHM: regular rhythm GI: COMMON NORMALS: Normal to inspection, nondistended, normoactive bowel sounds present PALPATION: Yes Tenderness to palpation present (GI) (Epigastric) Extremity: COMMON NORMALS: no pedal edema Neuro: EVERT COMA SCALE: document GCS findings Evert coma scale eye opening: Spontaneous Evert coma scale verbal response: Orientated Leggett coma scale motor response: Obey commands Leggett coma scale total score: 15 SENSORIUM/ORIENTATION: Yes lethargic SENSORY EXAM: Yes extremities (intact) Psych: COMMON NORMALS: speech normal SPEECH: Yes normal speech Skin: COMMON NORMALS: no rashes or lesions noted GENERAL SKIN EXAM: no rashes or lesions noted Course Vital Signs: Vital signs: Vital Signs Temperature 97.9 F 01/14/23 18:32 Pulse Rate 114 H 01/15/23 00:00 Respiratory Rate 14 01/14/23 18:32 Blood Pressure 129/101 01/15/23 00:00 Pulse Oximetry 89 L 01/15/23 00:00 Oxygen Delivery Me thod Room Air 01/15/23 00:00 MDM - Nausea/Vomiting/Diarrhea Medical Decision Making 47-year-old male with history of heart failure and COPD. He presents with vomiting. Generalized weakness. He is given a liter of fluid. He is improved to some degree. Antiemetics have helped. He was not given more than a liter due to his history of heart failure. Creatinine is 1.3 which is his baseline. Other laboratory as far as CBC and BMP are not remarkable. His lactic acid is 2.4 down to 2 after fluid. CRP is 7. His BNP is 11,500, which is not far off of his baseline. His urine drug screen is positive for amphetamines and marijuana, likely the cause of his vomiting. Because of prior history of lung mass/nodule, and mediastinal adenopathy, CT of the chest abdomen pelvis is performed. It shows cardiomegaly, advanced emphysema, ascites in the belly. Lung nodule is not changed significantly since his CT in November. Mediastinal adenopathy has decreased. No other abnormalities noted. He will be discharged on antiemetics, liquid diet. Lab Data 01/14/23 19:40 01/14/23 19:40 Radiology Impressions Chest/Abdomen/Pelvis CT 01/14/23 20:03 IMPRESSION: 1. Cardiomegaly is present. 2. Advanced centrilobular emphysema noted. 3. 1.9 cm soft tissue mass-like density at the right lung apex which may represent fibrosis versus a nodule. This is unchanged from CT chest of 11/08/2022.For both low risk and high risk patients, consider CT Chest at 3 IMPRESSION: 1. There is moderate ascites in the abdomen and pelvis. No loculated fluid collection. 2. No acute bowel abnormality identified. 3. No acute abnormality of the solid organs demonstrated. COMMENTS: Consistent with the [place] [employer]'s Incidental Findings Committee white paper (J Am Dana Radiol 2018): Any incidental renal lesion less than 1 cm or classified as too small to characterize, or any incidental cystic renal lesion characterized as simple-appearing, is likely benign. No follow-up imaging is recommended for these lesions per consensus recommendations based on imaging criteria. Laboratory Results WBC 9.33 10^3/uL (3.29-11.43) 01/14/23 19:40 RBC 4.89 10^6/uL (3.85-5.65) 01/14/23 19:40 Hgb 13.70 g/dL (11.27-16.99) 01/14/23 19:40 Hct 41.7 % (37-53) 01/14/23 19:40 MCV 85.3 fl (82-101) 01/14/23 19:40 MCH 28.0 pg (27-33) 01/14/23 19:40 MCHC 32.9 g/dL (30-55) 01/14/23 19:40 RDW 16.2 % (12.1-15.1) H 01/14/23 19:40 Plt Count 257 10^3/cmm (157-399) 01/14/23 19:40 MPV 11.9 fL (7.4-10.4) H 01/14/23 19:40 Neut % (Auto) 82.7 % 01/14/23 19:40 Lymph % (Auto) 11.1 % 01/14/23 19:40 [place] % (Auto) 5.5 % 01/14/23 19:40 Eos % (Auto) 0.0 % 01/14/23 19:40 Baso % (Auto) 0.3 % 01/14/23 19:40 Neut # (Auto) 7.71 10^3/uL (1.8-7.7) H 01/14/23 19:40 Lymph # (Auto) 1.0 10^3/uL (0.8-4.8) 01/14/23 19:40 [place] # (Auto) 0.5 10^3/uL (0.2-0.9) 01/14/23 19:40 Eos # (Auto) 0.0 10^3/uL (0.0-0.8) 01/14/23 19:40 Baso # (Auto) 0.0 10^3/uL (0.0-0.1) 01/14/23 19:40 Nucleated RBC % (auto) 0 % 01/14/23 19:40 Nucleated RBCs # 0.0 /100WBC 01/14/23 19:40 PT 15.80 SECONDS (12.1-14.9) H 01/14/23 19:40 INR 1.22 (0.8-1.2) H 01/14/23 19:40 Sodium 137 mmol/L (136-145) 01/14/23 19:40 Potassium 3.8 mmol/L (3.5-5.1) 01/14/23 19:40 Chloride 94 mmol/L (98-107) L 01/14/23 19:40 Carbon Dioxide 27 mmol/L (22-29) 01/14/23 19:40 Anion Gap 19.8 (5-19) H 01/14/23 19:40 BUN 23 mg/dL (6-20) H 01/14/23 19:40 Creatinine 1.3 mg/dL (0.7-1.2) H 01/14/23 19:40 GFR Calculation 58.7 mL/min (90-130) L 01/14/23 19:40 Glucose 152 mg/dL (65-115) H 01/14/23 19:40 Calculated Osmolality 291 mOsm/kg (285-295) 01/14/23 19:40 Lactic Acid 2.4 mmol/L (0.5-2.2) H 01/14/23 19:40 Lactic Acid (Sepsis) 2.0 mmol/L (0.5-2.2) 01/14/23 22:52 Calcium 10.0 mg/dL (8.5-10.5) 01/14/23 19:40 Magnesium 2.2 mg/dL (1.7-2.3) 01/14/23 19:40 Total Bilirubin 1.5 mg/dL (0.15-1.2) H 01/14/23 19:40 AST 22 U/L (0-40) 01/14/23 19:40 ALT 27 U/L (0-41) 01/14/23 19:40 Alkaline Phosphatase 56 U/L (40-130) 01/14/23 19:40 Creatine Kinase 49 U/L (39-308) 01/14/23 19:40 C-Reactive Protein 7.4 mg/L (0.0-4.9) H 01/14/23 19:40 NT-Pro-B Natriuret Pep 47770 pg/mL (0-125) H 01/14/23 19:40 Total Protein 7.7 g/dL (6.6-8.7) 01/14/23 19:40 Albumin 4.2 g/dL (3.5-5.2) 01/14/23 19:40 Globulin 3.5 g/dL (1.3-4.6) 01/14/23 19:40 Lipase 21 U/L (13-60) 01/14/23 19:40 Urine Color Yellow (Yellow) 01/14/23 23:50 Urine Appearance Clear (CLEAR) 01/14/23 23:50 Urine pH 9 (5-7) H 01/14/23 23:50 Ur Specific Cabins 1.010 (1.005-1.030) 01/14/23 23:50 Urine Protein 2+ (Negative) H 01/14/23 23:50 Urine Glucose (UA) Norm (Normal) 01/14/23 23:50 Urine Ketones 1+ (Negative) H 01/14/23 23:50 Urine Blood Neg (Negative) 01/14/23 23:50 Urine Nitrate Negative (Negative) 01/14/23 23:50 Urine Bilirubin Neg (Negative) 01/14/23 23:50 Urine Urobilinogen 1 mg/dL (Negative) H 01/14/23 23:50 Ur Leukocyte Esterase Trace (Negative) H 01/14/23 23:50 Urine RBC 0-4 /hpf (0-2) H 01/14/23 23:50 Urine WBC 5-10 /hpf (0-5) H 01/14/23 23:50 Ur Squamous Epith Cells 0-4 /hpf (0-5) H 01/14/23 23:50 Amorphous Sediment Not Reportable 01/14/23 23:50 Urine Bacteria None /hpf (NONE) 01/14/23 23:50 Urine Opiates Screen Negative ng/mL (Negative) 01/14/23 23:50 Ur Barbiturates Screen Negative ng/mL (Negative) 01/14/23 23:50 Ur Phencyclidine Scrn Negative ng/mL (Negative) 01/14/23 23:50 Ur Amphetamines Screen Positive ng/mL (Negative) H 01/14/23 23:50 U Benzodiazepines Scrn Negative ng/mL (Negative) 01/14/23 23:50 Urine Cocaine Screen Negative ng/mL (Negative) 01/14/23 23:50 U Marijuana (THC) Screen Positive ng/mL (Negative) H 01/14/23 23:50 Ethyl Alcohol < 10 mg/dL (0-10) 01/14/23 19:40 Discharge Plan Discharge Patient Disposition: Home Clinical Impression: Vomiting Condition: Stable Prescriptions: New ondansetron 4 mg film 4 mg PO DAILY PRN (Reason: nausea and vomiting) Qty: 10 0RF No Action Lasix 40 mg tablet 40 mg PO BID Qty: 180 3RF metoprolol succinate 25 mg tablet extended release 24 hr 25 mg PO DAILY Qty: 90 3RF spironolactone 25 mg tablet 25 mg PO DAILY Qty: 90 3RF metolazone 2.5 mg tablet 2.5 mg PO DAILY Qty: 90 3RF Discharge Orders: Discharge ED (Routine); Ordered 01/14/23 Ordered By: Franck Retana Patient Instructions: Vomiting - Adult Activity Restrictions/Additional Instructions: Take the nausea medication you were dispensed and prescribed every 4 hours while awake for the next 24 hours, then as needed following. Follow a liquid diet for 24 hours, then you may increase your diet to full as tolerated given no vomiting. Return for continued vomiting, worsening abdominal pain, worsening shortness of breath, any other concerning symptoms. Coding Level of Care Code ED Business Development Coordinator for Trina Tariq
[2023-01-14] MEDS: sodium chloride 0.9% 1,000 ML 999 ML IV (20:11)
[2023-01-14] MEDS: ketorolac 30 mg/mL INJ 15 MG IVP (20:12)
[2023-01-14] MEDS: ondansetron 2 mg/ML SDV 2 mL 4 MG IVP ×2 (20:12→22:14)
[2023-01-14 20:17] LABS: Basophils % 0.3 %; Hematocrit 41.7 % (37-53); Lymphocytes % 11.1 %; Mean Corpuscular HGB Conc 32.9 g/dL (30-55); Mean Corpuscular Volume 85.3 fl (82-101); Mean Platelet Volume 11.9 fL (7.4-10.4); Monocytes # 0.5 10^3/uL (0.2-0.9); Monocytes % 5.5 %; Neutrophils # 7.71 10^3/uL (1.8-7.7); Neutrophils % 82.7 %; Nucleated Red Blood Cells % 0 %; Platelet Count 257 10^3/cmm (157-399); Red Blood Count 4.89 10^6/uL (3.85-5.65); Red Cell Distribution Width 16.2 % (12.1-15.1); White Blood Count 9.33 10^3/uL (3.29-11.43)
[2023-01-14] MEDS: iohexol 350 mg/mL 500 mL Btl (per mL) IV (20:26)
[2023-01-14 20:30] LABS: INR 1.22 (0.8-1.2)
[2023-01-14 20:46] LABS: Lactic Sepsis W/Reflex 2.4 mmol/L (0.5-2.2)
[2023-01-14 20:58] LABS: Alanine Aminotransferase 27 U/L (0-41); Albumin Level 4.2 g/dL (3.5-5.2); Alcohol Level < 10 mg/dL (0-10); Alkaline Phosphatase 56 U/L (40-130); Anion Gap 19.8 (5-19); Aspartate Amino Transferase 22 U/L (0-40); Blood Urea Nitrogen 23 mg/dL (6-20); C Reactive Protein 7.4 mg/L (0.0-4.9); Carbon Dioxide 27 mmol/L (22-29); Chloride 94 mmol/L (98-107); Creatine Phosphokinase 49 U/L (39-308); Globulin 3.5 g/dL (1.3-4.6); Glomerular Filtration Rate 58.7 mL/min (90-130); Glucose 152 mg/dL (65-115); Lipase 21 U/L (13-60); Magnesium 2.2 mg/dL (1.7-2.3); NT Pro B Type Natriuretic Pept 11571 pg/mL (0-125); Osmolality Calculated 291 mOsm/kg (285-295); Potassium 3.8 mmol/L (3.5-5.1); Sodium 137 mmol/L (136-145); Total Bilirubin 1.5 mg/dL (0.15-1.2); Total Protein 7.7 g/dL (6.6-8.7)
[2023-01-14 21:59] LABS: Reflex Lactate Order REFLEX LACTIC ORDERD
[2023-01-14] MEDS: haloperidol inj 5 mg/mL INJ 1 mL 3 MG IVP (22:14)
[2023-01-14 22:30] VITALS: BP 133/109; PULSE 115; O2SAT 92
[2023-01-15] VITALS: BP 129/101; PULSE 114; O2SAT 89
[2023-01-15 00:08] LABS: Amphetamines Screen Urine Positive (Negative); Barbiturates Screen Urine Negative (Negative); Benzodiazepines Screen Urine Negative (Negative); Cocaine Screen Urine Negative (Negative); Opiate Screen Urine Negative (Negative); PCP Screen Urine Negative (Negative); THC Screen Urine Positive (Negative)
[2023-01-15 00:12] LABS: Glucose Urine UA Norm (Normal); Protein Urine 2+ (Negative); Urine Appearance Clear (CLEAR); Urine Color Yellow (Yellow); pH Urine 9 (5-7)
[2023-01-15 00:13] LABS: Add Urine Culture? No; Add Urine Microscopic? YES; Bilirubin Urine Neg (Negative); Blood Urine Neg (Negative); Ketones Urine 1+ (Negative); Leukocyte Esterase Urine Trace (Negative); Nitrate Urine Negative (Negative); RBC Urine 0-4 /hpf (0-2); Squamous Epithelial Cell Urine 0-4 /hpf (0-5); Urobilinogen Urine 1 mg/dL (Negative)
--- NOTE | 2023-01-15 00:33 | PC.NURSE ---
PT SENT HOME WITH 2 TABS OF 4MG ZOFRAN PER MED ORDER.
== END 2023-01-15 00:15 | disposition home or self-care (01) ==
PROVIDERS: Emergency Provider Emergency Medicine
DX: R11.10 Vomiting, unspecified (principal); R53.1 Weakness
CPT/HCPCS: 71260; 74177; 80053; 80306; 80307; 81001; 81003; 82550; 83605; 83690; 83735; 83880; 85025; 85610; 86140; 96361; 96374; 96375; 96376; 99285; J1630; J1885; J2405; J7030; Q9967

== ENCOUNTER 2023-02-03 14:02 | Outpatient (CLI) | payer OTHER, SELFPAY ==
--- NOTE | 2023-02-03 14:15 | USCV_ITS ---
Froylan Kraus Age: 47 Gender: M : 1975 Exam Date: 02/03/2023 14:13 Ordering Phys: Carlo Perez M.D ([email or web address]) Technologist: [place] [facility] [place]: sob BP: 108 / 70 HR: 106 Rhythm: Atrial fibrillation Technical Quality: Adequate MEASUREMENTS (Male / Female) Normal Values 2D ECHO LVOT Diameter 2.1 cm LV Ejection Fraction MOD 2C 7.5 % LV Ejection Fraction 2C AL 9.0 % LA Diameter 4.4 cm Aorta at Sinotubular Diameter 2.4 cm M-MODE Aortic Annulus Diameter 2.9 cm LA Ao Ratio MM 1.6 MV E Point Septal Separation 2.7 cm DOPPLER AV Peak Velocity 94.0 cm/s LVOT Peak Velocity 66.0 cm/s AV Area Cont Eq vti 3.7 cm squared AV Area Cont Eq pk 2.4 cm squared MV Area PHT 5.6 cm squared MV E' Velocity 59.0 cm/s Mitral E to MV E' Ratio 14.6 Mitral E to LV E' Lateral Ratio 11.1 Mitral E to LV E' Septal Ratio 21.1 TR Peak Velocity 280.1 cm/s TR Peak Gradient 31.4 mmHg TR Mean Velocity 160.4 cm/s TR Mean Gradient 12.2 mmHg TR Velocity Time Integral 51.5 cm TV Peak E Velocity 98.0 cm/s Right Atrial Pressure 8.0 mmHg Pulmonary Artery Systolic Pressu 39.4 mmHg PV Peak Velocity 80.0 cm/s FINDINGS Left Ventricle Left ventricle is dilated. LV systolic function is severely reduced with EF of 5 to 10%. Severe global hypokinesis. Right Ventricle Severely hypokinetic Right Atrium Dilated Left Atrium Dilated Mitral Valve Structurally normal mitral valve. Moderate posteriorly directed eccenteric mitral regurgitation Aortic Valve Grossly normal. No significant stenosis or regurgitation. Tricuspid Valve Mild to moderate tricuspid regurgitation. RVSP is 50 to 55 mmHg. This is consistent with moderate pulmonary hypertension. Pulmonic Valve Not well visualized. Mild pulmonic regurgitation. Pericardium Normal Aorta Normal in size IVC Dilated CONCLUSIONS LV systolic function is severely reduced with EF of 5-10%. Severe global hypokinesis Severely hypokinetic right ventricle Biatrial dilation Moderate posteriorly directed eccenteric mitral regurgitation Mild to moderate tricuspid regurgitation. Moderate pulmonary hypertension Mild pulmonic regurgitation No comparison studies are available. Carlo Perez MD (Electronically Signed) Final Date: 03 February 2023 15:28 S
== END 2023-02-03 14:03 | disposition home or self-care (01) ==
PROVIDERS: PCP Internal Medicine; Visit Provider Internal Medicine
DX: R06.02 Shortness of breath (principal); R07.9 Chest pain, unspecified
CPT/HCPCS: 93306

== ENCOUNTER → 2023-02-08 13:55 | Outpatient (BNVA) | payer OTHER, SELFPAY | PROVIDERS: PCP Internal Medicine; Visit Provider Internal Medicine | DX: I50.9 Heart failure, unspecified (principal); J44.9 Chronic obstructive pulmonary disease, unspecified; R93.1 Abnormal findings on diagnostic imaging of heart and coronary circulation; I50.1 Left ventricular failure, unspecified; R58 Hemorrhage, not elsewhere classified | CPT/HCPCS: 36415; 80053; 83880; 85025; 85610 ==

== ENCOUNTER 2023-02-16 10:55 | Observation (INO) | payer OTHER, SELFPAY ==
[2023-02-16 07:30] VITALS: BP 99/72; PULSE 91; RESP 16; O2SAT 96; BMI 19.9
--- NOTE | 2023-02-16 07:30 | XACV_ITS ---
Exam Room: [facility] Ht: 175 cm Wt: 61 kg BSA: 1.72 m2 Gender: Male : 1975 Any Known Allergies: No known allergies Exam Priority: Routine Indication(s): - Chest Pain in spite of Medical Tx Procedure(s): Procedure Description: Diagnostic procedure Procedure Description: Left Heart Catheterization Procedure Description: Right Heart Catheterization Procedure Description: O2 saturation Procedure Description: Coronary Angiography Diagnostic Cath Status: Elective Diagnostic Findings * No significant disease noted in the Left Main, Left Anterior Descending, Right, or Circumflex coronary arteries. * Right heart cath findings: Severely elevated right and left sided cardiac pressures Cardiac output and cardiac index are severely reduced. * Coronary angiography shows right dominance. Conclusions 1. No significant disease noted in the Left Main, Left Anterior Descending, Right, or Circumflex coronary arteries. 2. Non-ischemic cardiomyopathy. 3. Elevated right and left sided cardiac pressures. Severely reduced cardiac output and cardiac index. Recommendations * Guideline directed medical therapy for heart failure. * Will recommend referral to advanced heart failure clinic at tertiary care center. * Outpatient cardiology follow up in 7-10 days. Interventional RX Recommendation: medical therapy and/or counseling Diagnostic RX Recommendation: medical therapy and/or counseling Pressures Phase:Rest AO : / ( 0 ) @ 10:17:00 AM 96 / 90 ( 93 ) @ 10:41:00 AM 100 / 93 ( 97 ) @ 10:43:00 AM 110 / 84 ( 94 ) @ 10:49:00 AM 108 / 85 ( 93 ) @ 10:49:00 AM LV : 113 35 @ 10:48:00 AM 113 / 12 / 35 @ 10:49:00 AM RV : 54 / 12 / 26 @ 10:35:00 AM PA : 59 / 34 ( 44 ) @ 10:33:00 AM RA : a wave = 28 v wave = 24 mean = 23 @ 10:35:00 AM PCW : a wave = 38 v wave = 36 mean = 34 @ 10:33:00 AM O2 Content Phase:Rest PA : O2 Content O2: 39.3 @ 10:41:00 AM Saturations Phase:Rest AO : 89 @ 10:17:00 AM PA : 39 @ 10:41:00 AM Cardiac Output Phase:Rest Isabella : 2 @ 11:58:16 AM Isabella Cardiac Index: 1 @ 11:58:16 AM Flow Phase:Rest Qp : 2 @ 11:58:16 AM Qs : 2 @ 11:58:16 AM Valves Phase:DefaultPhase AV : 4.0 @ 11:58:16 AM 4.0 @ 11:58:16 AM AV Mean Gradient: 13.0 @ 11:58:16 AM 13.0 @ 11:58:16 AM AV Flow: 256 @ 11:58:16 AM AV Area: 1.6 @ 11:58:16 AM AV Area Index: 0.91 @ 11:58:16 AM Clinical Evaluation EBL: 5mL-10mL Procedural Details Procedure Consent Obtained. Admit Source: Out Patient. Pre-Procedure Time Out. Identified patient by full name and date of as verbalized by the patient/guarantor. Does the consent match the physician's order: Yes. Accurate & Complete Informed Consent: Yes. Inpatient/Outpatient History & Physical on Chart: Yes. If H&P is completed, is and addenduem needed: No; If yes, is the addendum complete: N/A. Visualize and Verify Site with Patient/Guarantor: N/A. Relevant Radiology Images available: N/A. The risks, benefits, and alternatives of sedation and/or procedure were discussed by physician. The patient agrees to continue. Procedure started. [facility] Clinical Fraility Score: 4: Vulnerable. Critical Care Nurse Specialist Indications: LV Dysfunction. Chest Pain Symptom Assessment: Atypical Angina. Cardiovascular Instability: No. stable. Correct patient, site and procedure confirmed by cath team. PERRLA. Strong, equal hand airline customer service agent bilaterally. Lungs clear x 5 lobes. IV Site on Arrival: 18 gauge in the right anticubital. IV Site on Arrival: 20 gauge in the left anticubital. IV Fluids: 0.9% NaCl at KVO. 0 mL infused prior to calibration laboratory technician. Pre Procedural Pulses: bilateral posterior tibial was 1+. Pre Procedural Pulses: bilateral dorsalis pedis was 2+. Pre Procedural Pulses: bilateral radial was 3+. Oxygen started at 0liters/min via nasal canula. Off in preparation for RHC. right groin was prepped with chloroprep then draped in the usual sterile fashion. right brachial was prepped with chloroprep then draped in the usual sterile fashion. right radial was prepped with chloroprep then draped in the usual sterile fashion. Physician notified. Baseline sample Acquired. HR: 86 BPM. Current Diagnosis : CHF; LV DYSFUNCTION. Family updated by MD prior to the start of the procedure. Baseline sample Acquired. HR: 89 BPM. Physician arrived. Physician scrubbed in. Immediate Pre-Procedure Time Out. Correct Patient: Yes; Correct Procedure: Yes; Correct Site: Yes; Correct Patient Position: Yes; Correct Supplies: Yes; Dried Flammable Prep: Yes; Blood Products Available: N/A;. Lidocaine 1% infiltrated to the right brachial. Wire inserted through 18 ga brachial IV access. [place] MON catheter inserted. [place] wire inserted to advance swan mon catheter. [place] wire removed. SWAN wire inserted. [place] advanced. [place] wire out. Oximetry samples were obtained. Normal venous range: 60-85%. Normal arterial range: 95-100%. ABG drawn and sent with respiratory therapy. [place] out. Lidocaine 1% infiltrated to the right radial. Arterial access obtained. ABG drawn and sent with respiratory therapy. Oxygen started at 2liters/min via nasal canula. A 5 indonesian TIG catheter in over wire. Multiple views taken of left coronary artery. Catheter redirected to the RCA. Multiple views taken of right coronary artery. Catheter inserted over the wire into LV. EDP Sample taken: LV 113/11,35; HR: 93 BPM; SpO2: 98%. Pullback taken: LV 113/12,35; AO 110/84(94); Mean: 13mmHg, Peak to Peak: 4mmHg, SEP: 9sec/min; HR: 94 BPM; SpO2: 100%. Catheter removed over the wire. Physician review of films. Physician scrubbed out. A Manual Compression was successful obtaining hemostatsis at the Right Brachial Vein insertion site. Sheath(s) removed and manual pressure held until hemostasis was achieved. Sterile 4x4 and Op-site applied to the puncture site. No oozing or hematoma noted. Post sheath removal instructions were given and the patient verbalized understanding. A TR Band was successful obtaining hemostatsis at the Right Radial artery insertion site. TR band placed. Hemostasis obtained. Post Procedure: Pulses reassessed and unchanged. PERRLA. Strong, equal hand airline customer service agent bilaterally. Medication waste Nitroglycerin- 49.8 mg Heparin- 1000 units. No VTE prophylaxis required. Total IV fluids: 43 mL. Fluoro: 6:05. Contrast type used: Visipaque 320 mgI/mL, 100 mL bottle. Visipaque 46 ml. Post-op diagnosis: Non Ischemic Cariomyopathy; Severely elevated and right and left sided heart pressures. Complications: None. Estimated blood loss: 5mL-10mL. Vital chart was stopped. Responsiveness - Normal response to verbal stimuli; alert and oriented, PERRLA. Airway - Unaffected, no intervention required; spontaneous ventilation. Circulation: W/N/L, pulses unchanged. Nausea/Vomiting: No. Procedure completed. Patient transferred by wheelchair to CPRU. Procedure started. Access Site Site: Right Brachial Vein Sheath Size: 6 Fr Hemostasis Method: Manual Compression Hemostasis Success: Successful Site: Right Radial artery Sheath Size: 6 Fr Hemostasis Method: TR Band Hemostasis Success: Successful Procedure Medications Start: 9:25 AM Stop: 9:25 AM Medication: Versed Amount: 1 mg Route: I.V. Start: 9:25 AM Stop: 9:25 AM Medication: Fentanyl Amount: 50 mcg Route: I.V. Start: 9:36 AM Stop: 9:36 AM Medication: Versed Amount: 1 mg Route: I.V. Start: 9:37 AM Stop: 9:37 AM Medication: Fentanyl Amount: 25 mcg Route: I.V. Start: 9:39 AM Stop: 9:39 AM Medication: Nitrogylcerin Amount: 100 mcg Route: I.A. Start: 9:41 AM Stop: 9:41 AM Medication: Heparin Amount: 5000 units Route: I.V. Start: 9:48 AM Stop: 9:48 AM Medication: Fentanyl Amount: 25 mcg Route: I.V. I, the attending physician, have reviewed and verified all procedure medications. Yes, all medications given per verbal order History/Risk Factors Hypertension: Yes Dyslipidemia: No Peripheral Arterial Disease (PAD): No Myocardial Infarction ([place]): No Obesity: No Renal Disease: No Tobacco Use: Never Prior Interventions PCI: No CABG: No Valve Surgery: No Report Signatures Finalized by Carlo Perez MD on 02/27/2023 08:46 AM
[2023-02-16] MEDS: aspirin 325 mg Tablet PO (07:31)
[2023-02-16] MEDS: diphenhydrAMINE 50 mg Capsule PO (07:31)
--- NOTE | 2023-02-16 09:23 | W.PM.OPSUD ---
Surgery/Procedure H&P Update DATE OF PROCEDURE: February 16, 2023 DATE H&P PERFORMED: 02/08/23 H&P UPDATE INFORMATION: I have reviewed H&P completed within last 30 days, I have examined patient prior to procedure and No changes to prior documentation PREOP DIAGNOSIS: LV dysfunction/ congestive heart failure PRIMARY INDICATION FOR PROCEDURE: LV dysfunction/ congestive heart failure PLANNED PROCEDURE: Operation Date: 02/16/23 08:30 Proposed Procedures p Right and Left Heart Cath 10320,I50.1,R93.1(Bilateral) - Carlo Perez M.D Possible percutaneous coronary intervention PATIENT REASSESSED PRIOR TO SEDATION, WITH NO CHANGE NOTED: Yes PHYSICAL EXAM: alert, oriented x 3, clear to auscultation bilaterally and regular rate & rhythm AIRWAY EVAL/ANESTHESIA PLAN: normal airway, ASA III, Local Anesthesia, Risks, benefits & alternatives of sedation and/or procedure discussed and Patient agrees to continue as planned ADDITIONAL INFORMATION: Moderate sedation
[2023-02-16 09:55] LABS: Alveolar-Arterial Oxygen Gradi 4.8 mmHg (5-10); Blood Gas Sample Site Not specified; Blood Gas Sample Type Arterial; Carboxyhemoglobin 3.4 %THgb (0.4-20.1); HGB O2 Sat 88.8 % (95-100); Methemoglobin 0.7 % (0.4-1.5); Oxygen Device ROOM AIR; Total Hemoglobin 12.7 g/dL (14-18)
[2023-02-16 10:00] VITALS: BP 113/84; PULSE 96; RESP 17; O2SAT 97
[2023-02-16 10:00] LABS: Arterial Blood Gas Hematocrit 40.7 % (42-52); Blood Gas Operator Identificat GD; Blood Gas Sample Site Not specified; Carboxyhemoglobin 3.1 %THgb (0.4-20.1); HGB O2 Sat 39.3 % (95-100); Methemoglobin 0.9 % (0.4-1.5); Oxygen Device ROOM AIR; Total Hemoglobin 13.3 g/dL (14-18)
[2023-02-16 10:01] LABS: Blood Gas Sample Type Venous
[2023-02-16 10:15] VITALS: BP 103/78; PULSE 95; RESP 16; O2SAT 97
[2023-02-16 10:30] VITALS: PULSE 96; RESP 18; O2SAT 96
--- NOTE | 2023-02-16 10:40 | PC.NURSE ---
Patient becoming restless and vocal about leaving before recovery period over. Nurse explained recovery process in detail and risk of bleeding. Patient became increasingly agitated , cursing at comic book writer and began yelling You can not hold me fucking hostage if you dont take me off this fucking monitor, I will take myself off it . Sister of patient at bedside. Dr. Perez notified and came to bedside to explain importance of finishing recovery, patient disagreeable with physician but verbalized he would give it a little longer . TR band remains in place. Site is asymptomatic with no signs of bleeding or hematoma.
--- NOTE | 2023-02-16 11:00 | PC.NURSE ---
Bedside report given to LENKA Meza. Pt placed on bedside security monitor. Pt still remains anxious about leaving. TR site is asymptomatic without signs of bleeding or hematoma. 2ml air released at this time. Sister remains at bedside.
--- NOTE | 2023-02-16 11:11 | NUR.SHIFT ---
Patient arrived to unit via wheelchair. Patient is non-compliant and is hesistant to stay. Patient has a TR band intact, no drainage or hematoma present. Activity restrictions have been provided. Patient verbalizes understanding but is not compliant. Patient has been told that he is not supposed to leave the floor and that we are a no smoking facility. Nurse will continue to monitor patient
--- NOTE | 2023-02-16 12:45 | PM.MISC ---
Miscellaneous Note Purpose of Documentation: Event note Note: Patient underwent coronary angiogram with right heart cath. This showed non ischemic cardiomyopathy and severely elevated right and left sided cardiac pressures alongwith low cardiac output and index. Right after the procedure patient wanted to leave hospital. He had TR band on. I explained risks of leaving including severe bleeding in case of not achieving optimal hemostasis prior to leaving. He agreed to stay. However after about 30-45 minutes he eloped without informing the floor staff with TR band on. He was brought back to the room. I again explained the rationale of why we are trying to obtain hemostasis. He understood but told us that he is not going to stay even if means severe hemorrhagic complications. Attempt to take TR band off failed because of bleeding. He left with TR band off and said he will come back to ER in 2-3 hours. His family was also present at that time and i explained the risks to them as well. He left against medical advice. For patient's medical condition, i did tell him the results and the fact he will benefit from getting admitted to hospital for dobutamine and diuresis. He refused any further treatment at this time. Also told him that he needs advanced heart failure team referral to tertiary care center but he refused that as well.
--- NOTE | 2023-02-16 14:10 | PC.NURSE ---
Patient has been educated on risks of bleeding and possible if leaving AMA. Nurse rounded on patient and within 5 minutes patient had eloped.Elopement was paged overhead and security escorted patient back to the room. Patient was educated regarding life threatening risks if leaving AMA by physician. Patient advised to come to ER in 3 hours to have TR band removed. Patient signed AMA form and verbalized understanding.
[2023-02-16 14:12] VITALS: PULSE 96; RESP 18; O2SAT 96
--- NOTE | 2023-02-16 16:01 | PC.NURSE ---
Patient arrive to the ED waiting room via POV with sister requesting this nurse to remove his TR band. Patient left AMA with TR band in place at 1200. Dr Perez aware and instructed patient to return to hospital in three hours to have TR band removed. This nurse removed TR band, no bleeding noted and no hematoma noted. Site was dressed with a 2x2 dressing and covered with a tegaderm. Instructed patient to leave dressing on for 24 hours and to avoid lifting more than 5 pounds for three days, apply pressure if bleeding occurs and to not submerge in water for 3 days. Patient verbalized understandings and left with sister in POV.
== END 2023-02-16 14:13 | disposition home or self-care (01) ==
LOC: CSU 11:07
PROVIDERS: Admitting Provider Internal Medicine; Visit Provider Internal Medicine
DX: R93.1 Abnormal findings on diagnostic imaging of heart and coronary circulation (principal); I11.0 Hypertensive heart disease with heart failure; I50.9 Heart failure, unspecified; I50.1 Left ventricular failure, unspecified; I42.8 Other cardiomyopathies
CPT/HCPCS: 36415; 82810; 93460; 96361; 96365; 99152; 99153; C1751; C1769; C1887; C1894; G0378; J1644; J2250; J3010; J3490; J7030; Q0163; Q9967

== ENCOUNTER → 2023-04-03 12:05 | Outpatient (BNVA) | payer OTHER, SELFPAY | PROVIDERS: Visit Provider Nurse Practitioner Family | DX: I50.20 Unspecified systolic (congestive) heart failure (principal) | CPT/HCPCS: 36415; 80048; 83880 ==